=== PATIENT | male | born 1975 | race Caucasian/White ===

== ENCOUNTER 2020-08-28 14:23 | Emergency (ER) | payer BC ==
[2020-08-28 14:34] VITALS: BP 134/75; PULSE 85; TEMP 98.5; BMI 25.1
== END 2020-08-28 18:20 | disposition home or self-care (01) ==
LOC: JER 14:23
DX: S36.029A Unspecified contusion of spleen, initial encounter (principal)
CPT/HCPCS: 74177-TC; 93005; 93010; 99284-25; Q9967